=== PATIENT | female | born 1965 | race African-American/Black ===

== ENCOUNTER 2017-12-12 05:01 | Day surgery (SDC) | payer OTHER ==
[2017-12-11 17:21] VITALS: BMI 32.0
--- NOTE | 2017-12-12 08:21 | HP ---
[facility] - Chief Complaint Chief Complaint: right shoulder pain History of Present Illness: right shoulder impingement, labral tear History Source: Patient Limitations to Obtaining History: No Limitations - Past Medical History Allergies/Adverse Reactions: Allergies Allergy/AdvReac Type Severity Reaction Status Date / Time No Known Drug Allergies Allergy Verified 12/12/17 08:16 ...LMP Comment: 8 yrs ago - Current Medications Current Medications: Home Medications Medication Instructions Recorded Multivitamin [Gummi Bear 1 each PO DAILY 11/12/13 Multivitamin] Satellite Physical Exam - Physical Examination Vital Signs: Vital Signs Period Temp Pulse Resp BP Sys/Burgos Pulse Ox Last 24 Hr 97.9 F 71 16 128/79 100 General Appearance: Well Nourished ENT: Clear Lung: Clear to auscultation Heart: Regular rate & rhythm Breasts: Soft Abdomen: Soft Extremities: No edema Satellite Impression/Plan - Impression/Plan Impression: right shoulder pain, impingement syndrome, labral tear Operative Procedure: right shoulder arthroscopy, decompression, possible labral repair Date to be Performed: 12/12/17
[2017-12-12] MEDS ORDERED: DEXAMETHASONE SOD PHOSPHATE/PF 10 MG/ML SDV ONE (08:31)
[2017-12-12] MEDS ORDERED: ROPIVACAINE HCL 0.5% 30ML VIAL ONE (08:31)
[2017-12-12] MEDS ORDERED: MIDAZOLAM HCL 2 MG/2 ML SINGLE DOSE VIAL ONE ×2 (08:33)
[2017-12-12] MEDS ORDERED: PROPOFOL 20 ML ONE ×3 (08:52→10:23)
[2017-12-12] MEDS ORDERED: ceFAZolin SODIUM 1 GM VIAL IVPB ONE (09:55)
[2017-12-12] MEDS ORDERED: ceFAZolin SODIUM 1 GM VIAL ONE (09:59)
--- NOTE | 2017-12-12 13:02 | OP ---
DATE OF OPERATION: 12/12/2017 PREOPERATIVE DIAGNOSIS: Right shoulder impingement syndrome and possible labral tear. POSTOPERATIVE DIAGNOSIS: Right shoulder impingement syndrome and possible labral tear. PROCEDURE PERFORMED: Right shoulder arthroscopy and subacromial decompression. SURGEON: Miguel Matthews MD ASSISTANTS: EMERY Coleman; SAND SYSTEM OPERATOR ANESTHESIA: Right interscalene block with LMA anesthesia. DRAINS: None. COMPLICATIONS: None. BLOOD LOSS: Minimal. BLOOD GIVEN: None. FLUID REPLACEMENT: PlasmaLyte 700 mL. INDICATIONS: The patient is a 52-year-old female with preoperative diagnosis of right shoulder pain and impingement syndrome, possible labral tear. After understanding the potential risks, complications, alternatives and benefits of surgery versus nonsurgical treatment, the patient elected to undergo this procedure. PROCEDURE: The patient was brought to the operating room, peripheral IV placed, IV sedation given. Right interscalene block was performed. One gram of IV Ancef was given. LMA anesthesia was induced. She was placed into the beach-chair position with ample padding throughout. The right upper extremity was prepped and draped in the usual sterile fashion. The bony landmarks were marked out with a marking pen. A posterior portal was established. A diagnostic glenohumeral arthroscopy was performed. There was fraying of the anterior labrum and a large superior port. Therefore, an anterior portal was established. Under direct visualization, with a spinal needle and a number 15 scalpel blade, a Green cannula was introduced into the joint. The labrum was probed and was seen to be frayed, but there was no labral tear to repair. Therefore, the shaver was introduced into the joint and the frayed portion of the labrum from 11 o'clock to 4 o'clock was debrided. Photographs were taken before and after. The labrum was probed, and there was no there was no tear. The glenoid looked good. The humeral head looked good. The biceps tendon looked good. There was a partial undersurface tear of the rotator cuff at the supraspinatus insertion. Therefore, the shaver was used to debride this small area of rotator cuff fraying and did not reveal any other additional tear. I would estimate was well less than 5% of the thickness of the rotator cuff. The area was irrigated and washed out. Next, our attention was turned to the subacromial space. A lateral portal was established under direct visualization. A Green cannula was introduced in the subacromial space. There was a lot of inflammatory bursitis, and a soft tissue bursectomy was performed with the ArthroCare wand and straight shaver. After an extensive debridement of the bursa, I was able to directly visualize the top surface of the rotator cuff and it looked good. There was no rotator cuff tear. I did soft tissue subacromial bursectomy. This revealed a large subacromial spur. There was no clavicular space. The subacromial bony spur was taken down with the 5.5-mm oval jennifer, then fine turned in reverse and cleaned up with a shaver. Photographs were taken before and after. The area was extensively explored again. There was no subclavicular spur. The top surface of the rotator cuff was directly visualized through a full range of motion. There was no tear whatsoever. There were no points of impingement under direct visualization. The area was copiously irrigated and washed out. All excess saline and debris were removed. The arthroscopy portals were closed with 3-0 nylon sutures and covered with Aquacel dressing. Total operative time was about 40 minutes. There were no complications throughout the case. The patient tolerated the procedure quite well and was brought to the ambulatory recovery room in stable condition. MIGUEL MATTHEWS M.D. [id number]
[2017-12-12 14:49] VITALS: BP 129/78; PULSE 68; TEMP 97.5
--- NOTE | 2017-12-13 16:36 | PATH ---
Surgical Pathology Report Patient Name: DIONICIO MCCAULEY [facility]. Rec. #: [id number] /Age/Gender: 1965 (Age: 52) / F Account: [id number] Location: [facility] SURGICAL Taken: 12/12/2017 Received: 12/12/2017 Reported: 12/13/2017 Physicians: Edilson Fonseca M.D. Specimen(s) Received SHAVINGS RIGHT SHOULDER Clinical History Tear right shoulder Final Diagnosis RIGHT SHOULDER, SHAVINGS: FRAGMENTS OF BONE, SYNOVIAL TISSUE, AND FIBROCARTILAGINOUS TISSUE WITH DEGENERATIVE CHANGE. UNREMARKABLE SKELETAL MUSCLE FRAGMENTS. Electronically Signed Keli Leonard M.D. Gross Description Received in formalin, labeled "shavings right shoulder," is a 3 x 3 x 0.7 cm. aggregate of hernandez-yellow soft tissue fragments. A pharmaceutical service representative portion is submitted in one cassette. DARRIAN/12/12/2017 dandre/12/12/2017
== END 2017-12-12 14:45 | disposition home or self-care (01) ==
LOC: JASU-SURG 05:01
PROVIDERS: ATTEND Orthopaedic Surgery
PROC: 0RBJ4ZZ Excision of Right Shoulder Joint, Percutaneous Endoscopic Approach (ICD-10-PCS; principal; 2017-12-12 09:30)
DX: M75.41 Impingement syndrome of right shoulder (principal)
CPT/HCPCS: 88304-TC; 94760

== ENCOUNTER 2019-03-24 08:12 | Day surgery (SDC) | payer OTHER | END 2019-03-24 11:00 | disposition home or self-care (01) | LOC: JASU-ENDO 08:12 ==

== ENCOUNTER 2022-03-19 10:55 | Emergency (ER) | payer OTHER ==
[2022-03-19] MEDS ORDERED: IBUPROFEN 600 MG TABLET (FP) PO ONE ×2 (11:14→11:18)
[2022-03-19 11:21] VITALS: BP 138/86; PULSE 83; RESP 18; TEMP 97.8; BMI 27.4
== END 2022-03-19 11:35 | disposition home or self-care (01) ==
LOC: FER 10:55
DX: S16.1XXA Strain of muscle, fascia and tendon at neck level, initial encounter (principal); V87.7XXA Person injured in collision between other specified motor vehicles (traffic), initial encounter; Y92.9 Unspecified place or not applicable
CPT/HCPCS: 99283-25